=== PATIENT | male | born 1945 | race Caucasian/White ===

== ENCOUNTER 2018-08-14 10:27 | Emergency (ER) | payer MEDICARE, OTHER ==
[2018-08-14 10:40] VITALS: BP 148/72
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
== END 2018-08-14 10:49 | disposition home or self-care (01) ==
LOC: LB.ED 10:27
DX: T23.202A Burn of second degree of left hand, unspecified site, initial encounter (principal); T31.0 Burns involving less than 10% of body surface
CPT/HCPCS: 99283

== ENCOUNTER 2020-04-18 13:38 | Emergency (ER) | payer MEDICARE, OTHER ==
--- NOTE | 2020-04-18 14:38 | EDM.PDOC ---
ED HPI GENERAL MEDICAL PROBLEM - General Chief Complaint: Abdominal Pain Stated Complaint: ABD PAIN Time Seen by Provider: 04/18/20 13:43 Source of Information: Reports: Patient History Limitations: Reports: No Limitations - History of Present Illness INITIAL COMMENTS - FREE TEXT/NARRATIVE: Patient presents emergency department with abdominal pain onset 30 minutes prior to arrival, patient describes pain in his left lower abdomen as sharp and intense, lasting for several minutes at 10/10, currently pain has remitted to a 2-3/10. Patient states pain worsens with palpation, has been improving without intervention otherwise. Patient denies nausea, vomiting, fever, chills, diarrhea, dysuria, hematuria, pyuria. Patient does state history of prediabetes and pancreatitis but no issues in the past 2 years regarding pancreatitis. Associated Symptoms: Reports: No Other Symptoms Lower Abdomen Pain Score (Numeric/FACES): 8 - Related Data Allergies Allergy/AdvReac Type Severity Reaction Status Date / Time No Known Allergies Allergy Verified 04/18/20 14:07 Home Meds: Home Meds Aspirin [Yohan Chewable] 81 mg PO DAILY 08/14/18 [History] carvediloL [Carvedilol] 6.25 mg PO BID 04/18/20 [History] Past Medical History Gastrointestinal History: Reports: Diverticulosis, Pancreatitis Genitourinary History: Reports: Other (See Below) (prostate cancer) Social & Family History - Tobacco Use Smoking Status *Q: Never Smoker - Caffeine Use Caffeine Use: Reports: Coffee - Recreational Drug Use Recreational Drug Use: No ED ROS GENERAL - Review of Systems Review Of Systems: Comprehensive ROS is negative, except as noted in HPI. ED EXAM, GENERAL - Physical Exam Exam: See Below Exam Limited By: No Limitations General Appearance: Alert, WD/WN, No Apparent Distress Eye Exam: Bilateral Eye: EOMI, PERRL Throat/Mouth: Normal Inspection, Normal Oropharynx, Normal Voice, No Airway Compromise Respiratory/Chest: No Respiratory Distress, Lungs Clear, Normal Breath Sounds Cardiovascular: Normal Peripheral Pulses, Regular Rate, Rhythm, No Edema, No JVD , No Murmur Peripheral Pulses: 2+: Radial (L), Radial (R), Dorsalis Pedis (L), Dorsalis Pedis (R) GI/Abdominal: Normal Bowel Sounds, Soft, No Organomegaly, No Distention, No Abnormal Bruit, No Mass, Tender (Bilateral lower abdominal tenderness, left greater than right) (Male) Exam: No Hernia Extremities: Normal Range of Motion, Non-Tender, No Pedal Edema, Normal Capillary Refill Neurological: Alert, Oriented, CN II-XII Intact, Normal Cognition Psychiatric: Normal Affect, Normal Mood Skin Exam: Warm, Dry, Intact Lymphatic: No Adenopathy Course - Vital Signs Last Recorded V/S: Last Vital Signs Temp 98.3 F 04/18/20 18: Pulse 94 04/18/20 18:28 Resp 16 04/18/20 18: BP 153/88 H 04/18/20 18:28 Pulse Ox 99 04/18/20 18:28 - Orders/Labs/Meds Labs: Laboratory Tests 04/18/20 04/18/20 04/18/20 Range/Units 14:20 14:25 14:25 WBC 7.5 (4.0-11.0) K/uL RBC 5.22 (4.50-6.50) M/uL Hgb 15.5 (13.0-18.0) g/dL Hct 44.3 (40.0-54.0) % MCV 85 (76-96) fL MCH 29.7 (27.0-32.0) pg MCHC 35.0 (31.0-35.0) g/dL RDW 12.6 (11.0-16.0) % Plt Count 164 (150-400) K/uL MPV 11.2 H (6.0-10.0) fL Neut % (Auto) 73.6 H (45.0-70.0) % Lymph % (Auto) 14.2 L (20.0-40.0) % [place] % (Auto) 11.6 H (3.0-10.0) % Eos % (Auto) 0.5 L (1.0-5.0) % Baso % (Auto) 0.1 (0.0-0.5) % Neut # (Auto) 5.53 (2.00-7.50) K/uL Lymph # (Auto) 1.07 L (1.50-4.00) K/uL [place] # (Auto) 0.87 H (0.20-0.80) K/uL Eos # (Auto) 0.04 (0.04-0.40) K/uL Baso # (Auto) 0.01 L (0.02-0.10) K/uL Sodium 140 (136-145) mmol/L Potassium 4.2 (3.5-5.1) mmol/L Chloride 104 (98-107) mmol/L Carbon Dioxide 28.3 (21.0-32.0) mmol/L Anion Gap 11.9 (5.0-15.0) mmol/L BUN 19 (8-26) mg/dL Creatinine 1.28 (0.70-1.30) mg/dL Est Cr Clr Drug Dosing 48.24 mL/min Estimated GFR (MDRD) 55 L (>60) MLS/MIN BUN/Creatinine Ratio 14.8 (6-25) Glucose 117 H (74-100) mg/dL Calcium 8.7 (8.5-10.1) mg/dL Total Bilirubin 1.3 H (0.0-1.0) mg/dL AST 20 (15-37) U/L ALT 22 (12-78) U/L Alkaline Phosphatase 83 (46-116) U/L Total Protein 7.0 (6.4-8.2) g/dL Albumin 3.7 (3.4-5.0) g/dL Globulin 3.3 (2.2-4.2) g/dL Albumin/Globulin Ratio 1.1 (0.8-2.0) Lipase 98017 H* (73-393) U/L Urine Color Yellow Urine Appearance Clear (CLEAR) Urine pH 5.5 (5.0-8.0) Ur Specific [place] 1.025 (1.003-1.030) Urine Protein Negative (NEGATIVE) mg/dL Urine Glucose (UA) Negative (NEGATIVE) mg/dL Urine Ketones Negative (NEGATIVE) mg/dL Urine Occult Blood Negative (NEGATIVE) Urine Nitrite Negative (NEGATIVE) Urine Bilirubin Negative (NEGATIVE) Urine Urobilinogen 0.2 (0.2-1.0) E.U./dL Ur Leukocyte Esterase Negative (NEGATIVE) - Radiology Interpretation Free Text/Narrative:: 8mm left side ureteral stone with coinciding hydronephrosis and hydroureter peripancreatic fat stranding fluid filled cyst vs abcess on head of pancreas 10mm CT Results Date: 04/18/20 CT Results Time: 17:44 - Re-Assessments/Exams Free Text/Narrative Re-Assessment/Exam: 06/10/20 16:45 pt states pain 2-3/10 currently tolerable Free Text/Narrative Re-Assessment/Exam: 04/18/20 18:05 discussed lab and imaging with results with pt and family as well as recommendation for transport to higher level of care where surgery and urology can be consulted Free Text/Narrative Re-Assessment/Exam: 04/18/20 1630 lipase 16,237 Departure - Departure Time of Disposition: 18:57 Disposition: DC/Tfer to Acute Hospital 02 Condition: Good Clinical Impression: Pancreatitis, acute, Ureteral stone with hydronephrosis, History of prostate cancer - Discharge Information *PRESCRIPTION DRUG MONITORING PROGRAM REVIEWED*: Not Applicable *COPY OF PRESCRIPTION DRUG MONITORING REPORT IN PATIENT CARIN: Not Applicable Referrals: PCP,None [Primary Care Provider] - Forms: ED Department Discharge, ED Return to Work/School Form Sepsis Event Note (ED) - Evaluation Sepsis Screening Result: No Definite Risk - Focused Exam Vital Signs: Vital Signs Temp Temp Pulse Resp BP Pulse Ox 04/18/20 18:28 98.3 F 94 16 153/88 H 99 04/18/20 13:43 98 F 57 L 16 146/86 H 100 - Problem List Review Problem List Initiated/Reviewed/Updated: Yes - Assessment/Plan Assessment:: ureteral stone with hydronephrosis pancreatitis hx of prostate cancer Plan: pt will be transferred to [facility] accepting physician Dr. Naranjo
--- NOTE | 2020-04-18 18:13 | CT ---
DATE OF SERVICE: 04/18/2020 CLINICAL DATA: Elevated Lipase Enhanced abdomen and pelvic CT: Multi slice acquisition through the abdomen and pelvis with IV, but without oral contrast was performed. The lung bases are clear. The heart size is normal. There is gas noted in the distal esophagus most likely related to GE reflux. There is mural thickening in the fundus and the body of the stomach. This is probably related to nondistention. Gastritis or an infiltrating process should at least be considered. The liver is normal size with homogeneous attenuation. No focal hepatic lesions. The gallbladder appears normal. No biliary duct dilation. Spleen appears normal. The right and left adrenals appear normal. The pancreas is abnormal. It is normal size. There is however peripancreatic fat stranding and fluid consistent with pancreatitis. There is also a 10 mm oval-shaped fluid density lesion in the head of the pancreas. Possibility of a phlegmon or small abscess should be considered. Consider cystic pancreatic neoplasm. There is a 4.1 cm sharply transcribed nonenhancing fluid density lesion in the upper pole of the right kidney consistent appearance with a benign renal cyst. There is a nonobstructing renal calculi on the left. There is an 8 mm left ureteral calculi located in the proximal left ureter at the L4 level. There is hydronephrosis and hydroureter proximal to it consistent with obstruction. The kidneys and collecting systems otherwise appear unremarkable. Bladder is fluid filled. It appears normal. The prostate is moderately enlarged. No evidence of appendicitis. There is diverticulosis of the descending and sigmoid colon. No evidence of diverticulitis. There is, however, mild mural thickening within the distal descending and sigmoid colon. This is probably related to chronic diverticular disease. There is mural thickening within the distal sigmoid colon and rectum. Direct visualization is recommended to exclude an infiltrating process. No free air. No dilated loops of bowel. No adenopathy. No aortic aneurysm or dissection. There is small fat containing umbilical hernia. There is a left fat containing inguinal hernia. There is degenerative disc disease throughout the lower thoracic and lumbar spine. No other significant findings. Impression: 1. Findings consistent with pancreatitis. 10 mm fluid density lesion head of the pancreas. Consider phlegmon or small abscess. Cystic pancreatic neoplasm should at least be considered. 2. 8 mm proximal left ureteral calculi with obstruction. Other findings as discussed above. The findings were discussed with the ER nurse. DASIA
== END 2020-04-18 19:15 ==
LOC: LB.ED 13:38
DX: K85.90 Acute pancreatitis without necrosis or infection, unspecified (principal); N13.2 Hydronephrosis with renal and ureteral calculous obstruction; Z85.46 Personal history of malignant neoplasm of prostate; Z79.82 Long term (current) use of aspirin; Z79.899 Other long term (current) drug therapy
CPT/HCPCS: 36415; 74177; 80053; 81003; 83690; 85025; 99285-25

== ENCOUNTER 2021-06-20 07:45 | Day surgery (SDC) | payer MEDICARE, OTHER ==
[~2021-06-20 07:45] MED LIST: Metoclopramide 10 MG/2 ML SDV IV PRN
[2021-06-20] MEDS: Sodium Chloride 0.9% 1,000 ML IV SCH (08:25)
[2021-06-20] MEDS ORDERED: Glycopyrrolate 0.2 MG/ML 2 ML SDV ONE (09:30)
[2021-06-20] MEDS ORDERED: Propofol 200 MG/20 ML SDV ONE (09:30)
--- NOTE | 2021-06-20 12:09 | OR ---
DATE OF OPERATION: 06/20/2021 SURGEON: Viral Schaefer MD PREOPERATIVE DIAGNOSIS: Surveillance colonoscopy. POSTOPERATIVE DIAGNOSIS: Surveillance colonoscopy. PROCEDURE: Colonoscopy. ANESTHESIA: MAC. ESTIMATED BLOOD LOSS: None. COMPLICATIONS: None. INDICATION FOR THE PROCEDURE: The patient is a 75-year-old male, here today for surveillance colonoscopy. Last colonoscopy date is unknown, but he is due. He has had previous personal history of colon polyps. He otherwise denies any change in bowel habits since that time. DESCRIPTION OF PROCEDURE: Informed consent was obtained from the patient. The patient was taken to the operating room, placed on the table in a left lateral decubitus position. Monitored anesthesia care was administered. Digital rectal exam performed, it was normal. Colonoscope was then advanced through the anus directed towards the cecum. Cecum was reached and identified by appendiceal orifice and ileocecal valve. Colonoscope was then slowly withdrawn. No cancer. No polyps. No areas of ischemia or inflammation identified. Did have some mild diverticulosis in the sigmoid colon. The rectum was also otherwise unremarkable. Colonoscope was then withdrawn. FINDINGS: Mild sigmoid diverticulosis. RECOMMENDATIONS: Would recommend high-fiber diet and plenty of water and avoiding constipation. Otherwise, would not recommend any further screening or surveillance colonoscopies in the future due to age. LIGIA/ANGY /[id number]
== END 2021-06-20 10:54 | disposition home or self-care (01) ==
LOC: LB.SDS 07:45
PROVIDERS: ATTEND Surgery
DX: Z12.11 Encounter for screening for malignant neoplasm of colon (principal); K57.30 Diverticulosis of large intestine without perforation or abscess without bleeding; I10 Essential (primary) hypertension; R73.03 Prediabetes; Z86.010 Personal history of colon polyps
CPT/HCPCS: J2704; J3490; J7030